=== PATIENT | male | born 1975 | race Caucasian/White ===

== ENCOUNTER 2019-01-10 23:11 | Inpatient (IN) ==
[2019-01-10] MEDS ORDERED: NARCAN ONE ×2 (23:45→23:49)
[2019-01-10] MEDS ORDERED: NARCAN IV ONE ×2 (23:52→23:53)
[2019-01-11 00:07] LABS: URINE SOURCE CATH
[2019-01-11 00:09] LABS: ALLEN TEST YES; BE -4.3 mmoll (-3.0-3.0); BLOOD TYPE ARTERIAL; HCO3-(ACT) 21.2 mmoll (20.0-26.0); METHB 1.3 % (0.0-1.5); O2(CT) 21.8 mL/dL (15.0-23.0); PO2(98.6) 152 mmHg (60-100); SAMPLE BLOOD; SAO2 99.7 % (95.0-100.0); THB 17.6 g/dL (11.5-17.4); pH(98.6) 7.27 (7.35-7.45)
[2019-01-11 00:11] LABS: MODALITY CANNULA
[2019-01-11 00:16] LABS: PCO2(98.6) 51 mmHg (35-45)
[2019-01-11 00:17] LABS: BASO# 0.02 X1000 (0.0-0.2); BASO% 0.2 % (0.0-0.8); EOS# 0.11 X1000 (0.0-0.7); EOS% 1.1 % (0.0-10.0); HEMATOCRIT 50.7 % (42.0-52.0); HEMOGLOBIN 17.2 g/dL (14.0-18.0); LYMPH# 3.99 X1000 (1.2-3.4); LYMPH% 40.3 % (20.5-51.1); MCH 31.6 PG (27-31); MCHC 33.9 g/dL (33-37); MONO# 0.54 X1000 (0.11-0.59); MONO% 5.5 % (1.7-9.3); MPV 9.2 FL (7.4-10.4); NEUT# 5.24 X1000 (1.4-6.5); NEUT% 52.9 % (42.2-75.2); PLT 302 X1000 (130-400); RBC 5.45 XMIL (4.7-6.1); RDW 13.4 % (11.5-14.5)
[2019-01-11] MEDS ORDERED: AMIDATE ONE (00:38)
[2019-01-11] MEDS ORDERED: AMIDATE IV ONE (00:38)
[2019-01-11] MEDS ORDERED: ZEMURON IV ONE (00:38)
[2019-01-11 00:44] LABS: BILIRUBIN URINE NEGATIVE (NEGATIVE); BLOOD URINE NEGATIVE (NEGATIVE); COLOR STRAW; GLUCOSE URINE NEGATIVE (NEGATIVE); KETONE URINE NEGATIVE (NEGATIVE); LEUKOCYTES URINE NEGATIVE (NEGATIVE); NITRITE URINE NEGATIVE (NEGATIVE); PROTEIN URINE NEGATIVE (NEGATIVE); SP GRAVITY URINE 1.006; TURBIDITY URINE CLEAR (CLEAR); UR EPITHELIAL CELLS <10 /HPF (<10); URINE BACTERIA NEGATIVE /HPF; URINE RBC <10 /HPF (<10); URINE WBC <10 /HPF (<10); UROBILINOGEN URINE NORMAL (NORMAL)
[2019-01-11] MEDS ORDERED: ZOFRAN ONE (00:56)
[2019-01-11] MEDS ORDERED: VERSED ONE (01:00)
[2019-01-11] MEDS ORDERED: DIPRIVAN 1% 1,000 MG/100 ML BOTTLE ONE (01:05)
[2019-01-11] MEDS ORDERED: DIPRIVAN 1% ONE (01:05)
[2019-01-11 01:06] LABS: ACETAMINOPHEN < 1.2 ug/mL (10-30); AGAP 17; ALB/GLOB RATIO 1.9; ALBUMIN 4.7 g/dL (3.5-5.0); ALKALINE PHOSPHATASE 98 U/L (32-122); BUN 7 mg/dL (8-22); CALCIUM 7.9 mg/dL (8.8-10.2); CHLORIDE 104 mmol/L (98-107); COSMO 282; CREATININE 0.8 mg/dL (0.7-1.2); GLUCOSE 112 mg/dL (70-104); GOT 24 U/L (10-34); GPT 33 U/L (10-44); POTASSIUM 3.5 mmol/L (3.5-5.1); SALICYLATES < 3.00 mg/dL (3-10); SODIUM 142 mmol/L (136-145); TCO2 21 mmol/L (25-35); TOTAL BILIRUBIN < 0.15 mg/dL (0.20-1.00); TOTAL PROTEIN 7.2 g/dL (6.3-8.3)
[2019-01-11] MEDS: DIPRIVAN 1% 1,000 MG/100 ML BOTTLE IV SCH ×2 (01:10→06:42)
[2019-01-11] MEDS ORDERED: VERSED IV ONE ×3 (01:16→01:30)
[2019-01-11] MEDS ORDERED: ZOFRAN IV ONE (01:16)
[2019-01-11 01:17] LABS: UR AMPHETAMINES QUAL NONE DETECTED (NONE DETECT); UR BARBITUATES QUAL NONE DETECTED (NONE DETECT); UR BENZODIAZEPIN QUAL NONE DETECTED (NONE DETECT); UR CANNABINOIDS QUAL NONE DETECTED (NONE DETECT); UR COCAINE QUAL NONE DETECTED (NONE DETECT); UR METHADONE QUAL NONE DETECTED (NONE DETECT); UR OPIATES QUAL NONE DETECTED (NONE DETECT); UR OXYCODONE QUAL NONE DETECTED (NONE DETECT); UR PCP QUAL NONE DETECTED (NONE DETECT)
[2019-01-11] MEDS ORDERED: DIPRIVAN 1% IV ONE (01:19)
[2019-01-11] MEDS ORDERED: DIPRIVAN 1% IV STA (01:19)
--- NOTE | 2019-01-11 01:46 | PROVIDER DOCUMENTATION ---
This chart was entered by Oj Denney Scribe, acting as scribe for Luna Dorsey MD. [id number] Abuse/Overdose <Bao Martínez - Last Filed: 01/11/19 14:04> - General Source: patient, EMS - History of Present Illness-Drug/Alcohol This episode of drinking or use began:: 1-3 hours ago Severity: reports: mild - Substance Abuse Substance Use: reports: alcohol, amphetamines - Alcohol Abuse Usually drinks:: daily <Luna Dorsey - Last Filed: 01/12/19 04:25> - General Chief Complaint: Intoxicated Stated Complaint: ETOH Time Seen by Provider: 01/10/19 23:38 Allergies/Adverse Reactions: Allergies Allergy/AdvReac Type Severity Reaction Status Date / Time No Known Allergies Allergy Verified 01/11/19 02:23 Home Medications: Home Medication List Medication Instructions Recorded Confirmed Last Taken Type No Home Medications 02/10/16 01/11/19 Unknown History - History of Present Illness-Drug/Alcohol Nature of Presenting Problem: Pt is a 43 yom who presents to the ED with a CC of alcohol overdose. Pt was unresponsive during examination. Pt's pupils were pinpoint level constricted. Pt had a nasal trumpet in the left nostril. Pt did not respond to verbal or painful stimuli. Pt has a hx of alcohol and drug abuse. (Luna Dorsey) Review of Systems - Adult - REVIEW OF SYSTEMS - ADULT Constitutional: reports: see HPI Eyes: reports: no symptoms reported Ears, Nose, Mouth & Throat: reports: no symptoms reported Cardiovascular: reports: no symptoms reported Respiratory: reports: no symptoms reported Gastrointestinal: reports: no symptoms reported Genitourinary: reports: no symptoms reported Musculoskeletal: reports: no symptoms reported Integumentary: reports: no symptoms reported Neurological: reports: no symptoms reported Psychiatric: reports: see HPI, alcohol/drug dependence Endocrine: reports: no symptoms reported Hematologic/Lymphatic: reports: no symptoms reported Allergic/Immunologic: reports: no symptoms reported All Other Systems: Reviewed and Negative <Luna Dorsey - Last Filed: 01/12/19 04:25> Past History - Adult - PAST MEDICAL HISTORY-ADULT Review of Records: reports: Old Records Reviewed, Nursing Assessment Review, Medications Reviewed, Social history reviewed & non-contributory. Major Childhood Illnesses: reports: denies history Cardiovascular: reports: HTN Respiratory: reports: asthma Gastrointestinal: reports: denies history Obstetrical/Gynecological: reports: denies history Genitourinary: reports: denies history Musculoskeletal: reports: denies history Neurological: reports: denies history Psychiatric: reports: bipolar Endocrine/Immune: reports: denies history Other Conditions: reports: denies history - PRIOR SURGERIES/PROCEDURES Surgical/Procedure History: reports: reviewed, not pertinent - IMMUNIZATION STATUS Childhood Immunizations: See Nurse Assessment Flu Vaccine: See Nurse Assessment - FAMILY HISTORY Family History: reviewed, not pertinent - SOCIAL HISTORY Smoking: cigarettes, less than 1 pack/day Substance Use: alcohol, amphetamines Alcohol Use Frequency: every day <Luna Dorsey - Last Filed: 01/12/19 04:25> Physical Exam-General - PHYSICAL EXAM-ADULT Exam Limited by: Pt's condition Initial Vital Signs Reviewed: Yes - CONSTITUTIONAL General Appearance: mild distress, other (Unresponsive) - EYES Eyes: other (Exam was limited due to pt's condition) - HEAD, EARS, NOSE, MOUTH & THROAT HENMT: normocephalic/atraumatic, moist mucous membranes, other (Exam was limited due to pt's condition) - NECK Neck: non-tender, full range of motion, other (Exam was limited due to pt's condition) - RESPIRATORY Respiratory: chest non-tender, lungs clear, normal breath sounds, other (Exam wa s limited due to pt's condition) - CARDIOVASCULAR Cardiovascular: normal peripheral pulses, regular rate, rhythm, no edema, other (Exam was limited due to pt's condition) - GASTROINTESTINAL (ABDOMEN) Abdominal Exam: non tender, soft, other (Exam was limited due to pt's condition) - MUSCULOSKELETAL Extremity: normal range of motion, non-tender, other (Exam was limited due to pt's condition) - SKIN Integumentary: normal color, warm/dry, other (Exam was limited due to pt's condition) - NEUROLOGIC Neurologic: sensory deficit, other (Exam was limited due to pt's condition) - PSYCHIATRIC Psych/Mental Status: disoriented x 3, other (Exam was limited due to pt's condition) <Luna Dorsey - Last Filed: 01/12/19 04:25> Progress - PLAN OF CARE/RESULTS Result Diagrams: 01/11/19 09:05 01/11/19 09:05 <Bao Martínez - Last Filed: 01/11/19 14:04> - PLAN OF CARE/RESULTS Result Diagrams: 01/11/19 09:05 01/11/19 09:05 - EKG 1 Time of EKG reading by physician:: 00:02 EKG Read and Signed by:: Luna Dorsey EKG Interpretation (*Must complete 3 of following elements*): Normal Rate: 88 Rhythm: NSR [place]: normal QRS: normal [place] Interval: normal ST Wave: normal - CT/MRI 1 CT Study: Head Impression: See EMR Report (Impression: No acute intracranial disease.) <Luna Dorsey - Last Filed: 01/12/19 04:25> - PLAN OF CARE/RESULTS Progress/Plan/Lab Results: Orders Category Date Time Status Admit [facility] Routine AdmDCTranf 01/11/19 04:35 Active Activity - Strict Bedrest ORDERED Care 01/11/19 04:35 Active Blood Glucose Finger Stick [FSBS/Accucheck Result] NOW Care 01/10/19 23:51 Completed Hernandez Care ROUTINE Care 01/11/19 03:11 Completed Hernandez Cath Insertion ORDERED Care 01/11/19 03:11 Active Intake and Output-Strict ORDERED Care 01/11/19 04:35 Active Neurological Check Q12-HR ASSESS Care 01/11/19 01:19 Active Nursing- MD Consult Request ROUTINE Care 01/11/19 04:35 Completed Vital Signs Order Q 4-HR ASSESS Care 01/11/19 04:35 Active Z-Document. for Tele Applied ORDERED Care 01/11/19 04:35 Active Physician/Provider Consults Routine Cons 01/11/19 04:35 Ordered NPO Diet 01/11/19 04:35 Completed CHEST-1 VIEW [RAD] Stat Exams 01/11/19 01:05 Completed CHEST-PORTABLE [RAD] Stat Exams 01/10/19 23:[address] HEAD W/O CONTRAST [CT] Stat Exams 01/10/19 23:51 Completed ABG [RESP] Routine Lab 01/10/19 23:52 Completed ACETAMINOPHEN [TDM] Stat Lab 01/11/19 00:01 Completed ALCOHOL BLOOD Stat Lab 01/11/19 00:01 Completed CBC WITH ELECTRONIC DIFF [HEME] Stat Lab 01/11/19 00:01 Completed COMPREHENSIVE METABOLIC PANEL [CHEM] Stat Lab 01/11/19 00:01 Completed MAGNESIUM [CHEM] Routine Lab 01/11/19 04:45 Completed Po4 [PHOSPHORUS] [CHEM] Routine Lab 01/11/19 04:45 Completed SALICYLATES [TDM] Stat Lab 01/11/19 00:01 Completed TROPONIN T Stat Lab 01/11/19 00:01 Completed TSH Routine Lab 01/11/19 04:45 Completed URINALYSIS W/POSS RFLX CULT [URINALYSIS] Stat Lab 01/11/19 00:01 Completed URINE DRUG SCREEN Stat Lab 01/11/19 00:01 Completed 0.9% Sodium Chloride Inj [Ns] 1,000 ml Med 01/11/19 04:35 Discontinued IV 100 mls/hr Albuterol 2.5MG/Ipratrop 0.5MG [Duoneb (A & A)] Med 01/11/19 04:35 Discontinued 3 ml INH RTQ6H Enoxaparin [Lovenox] Med 01/11/19 04:35 Discontinued 40 mg SUBQ Q24H Etomidate [Amidate] Med 01/11/19 00:38 Discontinued 20 mg IV NOW ONE Etomidate [Amidate] Med 01/11/19 00:38 Discontinued 40 mg .ROUTE .STK-MED ONE Midazolam [Versed] Med 01/11/19 01:16 Discontinued 2 mg IV NOW ONE Midazolam [Versed] Med 01/11/19 01:30 Discontinued 2 mg IV NOW ONE Midazolam [Versed] Med 01/11/19 01:16 Discontinued 3 mg IV NOW ONE Midazolam [Versed] Med 01/11/19 01:00 Discontinued 5 mg .ROUTE .STK-MED ONE Naloxone [Narcan] Med 01/10/19 23:45 Discontinued 2 mg .ROUTE .STK-MED ONE Naloxone [Narcan] Med 01/10/19 23:49 Discontinued 2 mg .ROUTE .STK-MED ONE Naloxone [Narcan] Med 01/10/19 23:52 Discontinued 2 mg IV NOW ONE Naloxone [Narcan] Med 01/10/19 23:53 Discontinued 2 mg IV NOW ONE Ondansetron [Zofran] Med 01/11/19 04:35 Discontinued 4 mg IV Q4H PRN PRN Ondansetron [Zofran] Med 01/11/19 00:56 Discontinued 8 mg .ROUTE .STK-MED ONE Ondansetron [Zofran] Med 01/11/19 01:16 Discontinued 8 mg IV NOW ONE Piperacillin/Tazobactam [Zosyn] 4.5 gm Med 01/11/19 02:00 Discontinued 0.9% Sodium Chloride Inj [Ns] 100 ml IV NOW Propofol [Diprivan 1%] Med 01/11/19 01:19 Discontinued 10 mg IV STAT ONE Propofol [Diprivan 1%] Med 01/11/19 01:19 Discontinued 10 mg IV STAT STA Propofol [Diprivan 1%] Med 01/11/19 01:05 Discontinued 200 mg .ROUTE .STK-MED ONE Propofol [Diprivan 1%] Med 01/11/19 01:05 Discontinued 1,000 mg in 100 ml .ROUTE As directed Propofol [Diprivan 1%] Med 01/11/19 01:30 Discontinued 1,000 mg in 100 ml IV As Directed mls/hr Rocuronium Sneads [Zemuron] Med 01/11/19 00:38 Discontinued 100 mg IV NOW ONE Thiamine 100 mg Med 01/11/19 05:00 Discontinued 0.9% Sodium Chloride Inj [Ns] 50 ml IV Q24H Vancomycin 1 gm/Ns Med 01/11/19 02:00 Discontinued 1 gm in 250 ml IV NOW Aerosol Treatments Routine Oth 01/11/19 04:35 Completed Telemetry [OM.EQ] Routine Oth 01/11/19 04:35 Active Transfer/Admit Order [TRANSFER] Routine Transfer 01/11/19 03:05 Completed Procedures - INTUBATION Airway Evaluation: Copious Secretions Intubation Method: orotracheal Equipment: ETT Tube Size (cm): 8.0 Pretreated with 100% Oxygen?: Yes Breath Sounds after Intubation: equal ETT Primary Tube Confirmation: Capnometry CO2 Change, Direct Visualization, Tube placement verified on XRAY Intubation Complications: oral-unsuccessful attempt (1x unsuccessful attempt due to patient requiring further sedation. Second attempt successful.), vomited, apparent aspiration Vent Settings: See Respiratory Therapy Notes <Bao Martínez - Last Filed: 01/11/19 14:04> Departure <Bao Martínez - Last Filed: 01/11/19 14:04> - Departure Date of Disposition Decision: 01/11/19 Time of Disposition Decision: 02:02 Certified Medical Emergency: Emergent - Critical Care Note This patient required my direct & personal management of CC.: No <Luna Dorsey - Last Filed: 01/12/19 04:25> - Departure DIAGNOSIS: Alcohol intoxication, Altered mental status, Respiratory failure with hypercapnia Disposition: ADMITTED INPATIENT 09 Condition: Serious Attestation - Physician/ VIDAL Attestation Patient care was provided by Advanced Practice Provider:: No The physician spent face to face time with patient:: Yes Advanced Practice Provider documentation review:: Supervising physician onsite and consulted in the evaluation and care of this patient. The physician did have a face to face encounter with the patient. <Luna Dorsey - Last Filed: 01/12/19 04:25> This chart was documented by the indicated scribe, (Oj Denney Scribe) and accurately reflects the services I performed and decisions made by me, Luna Dorsey MD, as attested by the provider's signature.
[2019-01-11] MEDS ORDERED: VANCOMYCIN 1 GM/NS 1 GM/250 ML IVPB IV ONE (02:00)
[2019-01-11] MEDS ORDERED: ZOSYN 4.5 GM in NS 100 ML IV ONE (02:00)
[2019-01-11] MEDS ORDERED: ZOFRAN IV PRN (04:35)
[2019-01-11] MEDS ORDERED: LOVENOX SUBQ SCH (04:35)
[2019-01-11] MEDS ORDERED: THIAMINE 100 MG in NS 50 ML IV SCH (05:00)
[2019-01-11 05:14] LABS: ALLEN TEST YES; BE -5.2 mmoll (-3.0-3.0); BLOOD TYPE ARTERIAL; HCO3-(ACT) 20.8 mmoll (20.0-26.0); METHB 1.3 % (0.0-1.5); O2(CT) 23.5 mL/dL (15.0-23.0); PCO2(98.6) 34 mmHg (35-45); PO2(98.6) 110 mmHg (60-100); SAMPLE BLOOD; SAO2 99.2 % (95.0-100.0); SRATE 16 BPM; THB 17.5 g/dL (11.5-17.4); TVOL 600 mL; pH(98.6) 7.36 (7.35-7.45)
[2019-01-11] MEDS: NS 1,000 ML IV SCH ×2 (05:14→15:09)
[2019-01-11 05:15] LABS: MODALITY VENTILATOR
[2019-01-11] MEDS: DUONEB (A & A) INH SCH ×3 (05:26→15:26)
[2019-01-11 05:54] LABS: MAGNESIUM 2.1 mg/dL (1.5-2.7); PHOSPHORUS 1.6 mg/dL (2.7-4.5)
[2019-01-11] MEDS ORDERED: SODIUM PHOSPHATE 20 MMOL in NS 250 ML IV ONE (06:28)
[2019-01-11] MEDS ORDERED: CALCIUM GLUCONATE 1 GM in NS 50 ML IV ONE (06:29)
--- NOTE | 2019-01-11 06:42 | Diag Imaging Result Doc PS360 ---
CT HEAD W/O CONTRAST - 01/10/2019 INDICATION: AMS COMPARISON: 09/08/2015 FINDINGS: The ventricles and sulci are normal in size and contour. No intracranial mass or hemorrhage. The skull is intact. The sinuses mastoids and middle ears are clear. IMPRESSION: Negative exam. This exam was performed using automated exposure control, adjustment of mA or kV according to patient size, and/or use of iterative reconstruction technique Electronically signed by Iain Tobin 01/11/2019 6:40 AM
--- NOTE | 2019-01-11 07:01 | Diag Imaging Result Doc PS360 ---
EXAM: CHEST-PORTABLE 01/10/2019 HISTORY: AMS TECHNIQUE: AP portable at 0016 COMMENT: There is some increase in prominence of the pulmonary vascularity. The inspiration is less optimal than on 08/12/2013. There is some questionable atelectasis over the left base. IMPRESSION: Poor inspiration. Left subsegmental atelectasis. Electronically signed by Kishore Gamez 01/11/2019 6:59 AM
--- NOTE | 2019-01-11 07:03 | Diag Imaging Result Doc PS360 ---
EXAM: CHEST-1 VIEW 01/11/2019 HISTORY: Check ET tube placement TECHNIQUE: AP portable at 0114 COMMENT: There is an endotracheal tube with its tip slightly below the thoracic inlet and well above the josh. There is soft tissue emphysema in the left supraclavicular region which was not apparent at the time the previous study of 01/11/2019 at 0016. Otherwise are has been no significant change in the appearance the chest and there is no evidence of pneumothorax or pneumomediastinum. IMPRESSION: Left supraclavicular soft tissue emphysema. Electronically signed by Kishore Gamez 01/11/2019 7:01 AM
--- NOTE | 2019-01-11 07:58 | HISTORY AND PHYSICAL ---
CHIEF COMPLAINT: Alcohol intoxication. HISTORY OF PRESENT ILLNESS: Mr. Cardoso is a 43-year-old male who comes in after drinking a large quantity of alcohol and possibly taking amphetamines. He was brought in unresponsive. Did not respond to verbal or painful stimulus. He has a history of polysubstance abuse. He was intubated in the emergency room. Most of the information if not all of it is from old medical charting as well as the ER charts. At any rate, his serum alcohol level was found to be 485. He did not have any other substances in his toxicology screen. His ABG showed respiratory acidosis. He will be intubated and placed in ICU for further evaluation and treatment. PAST MEDICAL HISTORY: Again limited related to his condition, but I believe he has a history of polysubstance abuse, suicidal ideation and tobacco use. PREVIOUS SURGICAL HISTORY: This is unknown. FAMILY HISTORY: I believe his mother had a history of bipolar disorder. SOCIAL HISTORY: Lives in [place]. Uses alcohol. Has had DUI's in the past with numerous arrests from what I understand. Has had a history of polysubstance abuse and I believe that he does smoke cigarettes, I am unsure how much. ALLERGIES: No known drug allergies. HOME MEDICATIONS: None that I am aware of. REVIEW OF SYSTEMS: This could not be conducted related to patient's condition. PHYSICAL EXAMINATION: VITAL SIGNS: Temperature 97.2 degrees, pulse 87, respirations 16, blood pressure 100/73, oxygen saturation 100% on mechanical ventilation. GENERAL: 43-year-old male lying in the ER stretcher intubated and sedated, in no acute distress. HEENT: Head is atraumatic, normocephalic. Pupils equal, round and reactive to light. Extraocular eye movement cannot be tested. Sclerae anicteric. Conjunctivae pink. Oral mucosa is dry. NECK: Supple. No JVD. No thyromegaly. Trachea is midline. No cervical lymphadenopathy. CARDIAC: S1, S2 appreciated. No murmurs, gallops, rubs. LUNGS: Clear to auscultation bilaterally. No rhonchi, wheezes or rales. Symmetrical rise and fall of respirations. ABDOMEN: Soft, nondistended, nontender. Bowel sounds present in all 4 quadrants. Normoactive. No pulsatile mass. No organomegaly. EXTREMITIES: No cyanosis, clubbing or edema. NEUROLOGICAL: Intubated and sedated. Cannot be tested. GENITOURINARY: No bladder distention. Otherwise deferred. DIAGNOSTIC DATA: Chest x-ray shows ET tube in good placement. LABORATORY DATA: CBC within normal limits. ABG, pH 7.27, pCO2 51, PO2 152, bicarb 21.2, this was on 4 liters nasal cannula. Sodium 142, potassium 3.5, chloride 104, carbon dioxide 21, BUN 7, creatinine 0.8, glucose 112, phosphorus 1.6, calcium 7.9. Urine unremarkable. Serum alcohol 485. ASSESSMENT AND PLAN: 1. Acute alcohol intoxication. 2. Polysubstance abuse. 3. Tobacco use. 4. Respiratory acidosis. 5. Deranged electrolytes. PLAN: Patient is intubated and sedated. Place him in the ICU. Replete and recheck electrolytes. We will give normal saline 100 mL an hour. Recheck ABGs tomorrow morning. Consult Dr. Armenta for ventilator management. 30 minutes critical care time. Further recommendations per patient's clinical course. Dictated by MICHELA Whittington for Nilay Yoder MD cc: MICHELA Whittington MD
[2019-01-11] MEDS ORDERED: ATIVAN IV PRN (08:17)
[2019-01-11] MEDS: POTASSIUM CHLORIDE 20 MEQ/SWI 20 MEQ/100 ML IVPB IV SCH ×2 (08:30→09:12)
--- NOTE | 2019-01-11 08:37 | EKG Report ---
Test Performed on : 01/11/2019 00:00:39 AM Test Reason : Alcoholic Intoxication Blood Pressure : / mmHG Vent. Rate : 088 BPM Atrial Rate : 088 BPM P-R Int : 172 ms QRS Dur : 098 ms QT Int : 382 ms P-R-T Axes : 056 000 029 degrees QTc Int : 462 ms Normal sinus rhythm. Normal ECG When compared with ECG of 03-APR-2016 09:16, Questionable change in QRS axis Unconfirmed Result
--- NOTE | 2019-01-11 08:51 | PROGRESS NOTE ---
DATE: 01/11/2019 SUBJECTIVE: The patient is on mechanical ventilation and sedated. Vital signs at this moment are stable. His fiancee is at the bedside. We had a large conversation about his situation. As per the mareke, he is not an alcoholic, but he has been drinking vodka for the past couple of days. She found him unresponsive, and called the ambulance yesterday night. OBJECTIVE: Vital Signs: Temperature 98.9 degrees, pulse 92, respiratory rate 16, blood pressure 116/94, and oxygen saturation 100% on room air. HEENT: Head normocephalic. No trauma. PERRLA. His pupils even though they are reactive are pinpoint. Neck: Supple. No JVD. Central trachea. Chest: Clear to auscultation. No wheezing. No rales. Abdomen: Soft, nontender, and nondistended. No hepatosplenomegaly. Neurological: This patient is on mechanical ventilation and sedated. LABORATORY: Phosphorus 1.6 and magnesium 2.1. Pending CMP. ASSESSMENT AND PLAN: 1. Acute alcohol intoxication. 2. History of polysubstance abuse. 3. Tobacco abuse. 4. Acute hypoxemic and hypercarbic respiratory failure. 5. Electrolyte imbalance. PLAN: We will continue with mechanical ventilation and sedation at this moment. We have been replacing his electrolytes. I will add Ativan as needed for agitation and/or seizures. As per the haider, who is at the bedside, he is not an alcoholic, but he has been drinking for the past couple of days. At this moment, he seems to be stable. CRITICAL CARE TIME: 30 minutes. cc: Ramy Carreon MD
[2019-01-11 09:34] LABS: BASO# 0.01 X1000 (0.0-0.2); BASO% 0.1 % (0.0-0.8); EOS# 0.04 X1000 (0.0-0.7); EOS% 0.4 % (0.0-10.0); HEMATOCRIT 48.2 % (42.0-52.0); HEMOGLOBIN 16.4 g/dL (14.0-18.0); IMM GRAN# 0.03 X1000 (0.0-0.04); IMM GRAN% 0.3 % (0.0-0.5); LYMPH# 2.65 X1000 (1.2-3.4); LYMPH% 24.2 % (20.5-51.1); MCH 31.7 PG (27-31); MCV 93.1 FL (81-99); MONO# 0.48 X1000 (0.11-0.59); MONO% 4.4 % (1.7-9.3); MPV 9.2 FL (7.4-10.4); NEUT# 7.75 X1000 (1.4-6.5); NEUT% 70.6 % (42.2-75.2); PLT 292 X1000 (130-400); RBC 5.18 XMIL (4.7-6.1); RDW 13.4 % (11.5-14.5); WBC 10.96 X1000 (4.8-10.8)
[2019-01-11 09:48] LABS: ALLEN TEST YES; BLOOD TYPE ARTERIAL; HCO3-(ACT) 22.5 mmoll (20.0-26.0); METHB 1.2 % (0.0-1.5); O2(CT) 23.2 mL/dL (15.0-23.0); O2HB 96.7 % (95.0-99.0); PCO2(98.6) 49 mmHg (35-45); PO2(98.6) 126 mmHg (60-100); SAMPLE BLOOD; SAO2 99.6 % (95.0-100.0)
[2019-01-11 09:49] LABS: MODALITY VENTILATOR
[2019-01-11 10:02] LABS: AGAP 16; ALB/GLOB RATIO 1.6; ALBUMIN 4.1 g/dL (3.5-5.0); ALKALINE PHOSPHATASE 88 U/L (32-122); BUN 7 mg/dL (8-22); CALCIUM 8.5 mg/dL (8.8-10.2); CHLORIDE 107 mmol/L (98-107); COSMO 288; CREATININE 0.9 mg/dL (0.7-1.2); ESTIMATED GFR > 60; GLUCOSE 89 mg/dL (70-104); GOT 19 U/L (10-34); GPT 27 U/L (10-44); SODIUM 146 mmol/L (136-145); TCO2 23 mmol/L (25-35); TOTAL BILIRUBIN 0.17 mg/dL (0.20-1.00); TOTAL PROTEIN 6.7 g/dL (6.3-8.3)
[2019-01-11 14:46] VITALS: BP 141/96
--- NOTE | 2019-01-11 19:40 | PULMONOLOGY CONSULTATION ---
DATE: 01/11/2019 REASON FOR CONSULTATION: Respiratory failure. HISTORY OF PRESENT ILLNESS: Mr. Cardoso is a 43-year-old male with history of alcohol use, history of polysubstance abuse, who had been drinking and taking drugs when he consumed a large amount of alcohol. The patient presented to the emergency room and was found to have a blood alcohol level 6 times over the legal limit. The patient was intubated and initiated on mechanical ventilation. He has started to wake up earlier this morning and has been initiated on propofol. PAST MEDICAL HISTORY: 1. History of suicidal ideation with prior admissions to [facility]. 2. History of panic attacks. FAMILY HISTORY: Mother and sister have bipolar disorder by report. SOCIAL HISTORY: Notable for alcohol use, drug use and tobacco use. REVIEW OF SYSTEMS: Cannot be obtained. PHYSICAL EXAMINATION: General: Reveals a well-developed, well-nourished male who is arousable with sedation of propofol. HEENT: Pupils are equal and reactive but slightly pinpoint. Oropharynx appears clear. Neck: Supple. Chest: Reveals occasional crackles bilaterally. Cardiac: S1-S2. Abdomen: Soft. Extremities: Without edema. LABORATORIES: Sodium 146, potassium 4.0, chloride 107, bicarbonate 23, BUN 7, creatinine 0.9. Alcohol level 485. Chest x-ray reveals some soft tissue emphysema in the inferior left neck possibly related to a line attempt. No evidence pneumothorax. Arterial blood gas at 5 o'clock this morning pH 7.36, pCO2 of 34, PO2 of 110. IMPRESSION: A 43-year-old with extensive alcohol use who presents with alcohol level 6 times the legal limit. The patient is now arousable. He is breathing on his own. RECOMMENDATIONS: 1. Hold propofol. 2. Initiate a spontaneous breathing trial. 3. Evaluate for extubation. TIME SPENT: In critical care management 1 hour. cc: Paresh Armenta MD
--- NOTE | 2019-01-12 08:09 | DISCHARGE SUMMARY ---
ADMISSION DATE: 01/11/2019 DISCHARGE DATE: 01/11/2019 DISCHARGE DIAGNOSES: 1. Alcohol intoxication. 2. History of polysubstance abuse. 3. Tobacco abuse. 4. Hypoxemic and hypercarbic respiratory failure. 5. Electrolyte imbalance. CONSULTATIONS: Pulmonary Department. HOSPITAL COURSE: A 43-year-old male admitted on 01/11/2019 after drinking a large quantity of alcohol. He was brought in unresponsive, did not respond to verbal or painful stimuli. He has a history polysubstance abuse. He was intubated in the emergency room. Most of the information if not all of it is from old medical charting as well as the ER chart. His serum alcohol level was found to be 485. He did not have any other substances in his toxicology screen. ABG showed respiratory acidosis. He was placed in the ICU, and evaluated by Pulmonary Department. Breathing trial was performed. We replaced the electrolytes. We put him on IV fluids and thiamine. Actually, he was extubated and a few hours later he has decided to leave AMA. As per the nurse, he was completely awake, alert and oriented x3. He signed the AMA papers, and left even though it has been explained that we would like to keep him at least for 1 day to monitor his respiratory status since he has been extubated recently. His head CT scan was completely normal. Chest x-ray shows some left subsegmental atelectasis the day of admission. Another x-ray showed some subclavicular soft tissue emphysema. The patient left AMA even though he has been recommended to stay for at least 24 hours. cc: Ramy Carreon MD
== END 2019-01-11 16:23 | disposition left against medical advice (07) | DRG 894 ==
LOC: ED 23:11 → ICU 01-11 03:21 → SUATTDRO 01-11 03:21
PROVIDERS: ATTEND Internal Medicine

== ENCOUNTER 2019-01-11 19:24 | Inpatient (IN) ==
[2019-01-11 20:19] LABS: URINE SOURCE CLEAN CATCH
[2019-01-11 20:26] LABS: BASO# 0.02 X1000 (0.0-0.2); BASO% 0.2 % (0.0-0.8); EOS# 0.02 X1000 (0.0-0.7); EOS% 0.2 % (0.0-10.0); HEMATOCRIT 47.9 % (42.0-52.0); HEMOGLOBIN 15.9 g/dL (14.0-18.0); IMM GRAN# 0.03 X1000 (0.0-0.04); IMM GRAN% 0.3 % (0.0-0.5); LYMPH# 2.12 X1000 (1.2-3.4); LYMPH% 18.2 % (20.5-51.1); MCH 31.1 PG (27-31); MCHC 33.2 g/dL (33-37); MCV 93.7 FL (81-99); MONO# 0.69 X1000 (0.11-0.59); MONO% 5.9 % (1.7-9.3); MPV 9.4 FL (7.4-10.4); NEUT# 8.77 X1000 (1.4-6.5); NEUT% 75.2 % (42.2-75.2); PLT 291 X1000 (130-400); RBC 5.11 XMIL (4.7-6.1); RDW 13.3 % (11.5-14.5); WBC 11.65 X1000 (4.8-10.8)
[2019-01-11 20:30] LABS: BILIRUBIN URINE NEGATIVE (NEGATIVE); BLOOD URINE TRACE (NEGATIVE); COLOR YELLOW; GLUCOSE URINE NEGATIVE (NEGATIVE); KETONE URINE NEGATIVE (NEGATIVE); LEUKOCYTES URINE NEGATIVE (NEGATIVE); NITRITE URINE NEGATIVE (NEGATIVE); PH URINE 6.5; PROTEIN URINE TRACE mg/dL (NEGATIVE); SP GRAVITY URINE 1.015; TURBIDITY URINE CLEAR (CLEAR); UROBILINOGEN URINE NORMAL (NORMAL)
[2019-01-11 20:33] LABS: UR EPITHELIAL CELLS <10 /HPF (<10); URINE BACTERIA NEGATIVE /HPF; URINE RBC <10 /HPF (<10); URINE WBC <10 /HPF (<10)
[2019-01-11 20:36] LABS: URINE CRYSTALS NONE SEEN
[2019-01-11 20:37] LABS: UR AMPHETAMINES QUAL NONE DETECTED (NONE DETECT); UR BARBITUATES QUAL NONE DETECTED (NONE DETECT); UR BENZODIAZEPIN QUAL PRESUMPTIVE POSITIVE (NONE DETECT); UR CANNABINOIDS QUAL NONE DETECTED (NONE DETECT); UR COCAINE QUAL NONE DETECTED (NONE DETECT); UR METHADONE QUAL NONE DETECTED (NONE DETECT); UR OPIATES QUAL NONE DETECTED (NONE DETECT); UR OXYCODONE QUAL NONE DETECTED (NONE DETECT); UR PCP QUAL NONE DETECTED (NONE DETECT)
[2019-01-11 20:40] LABS: AGAP 14; ALB/GLOB RATIO 1.3; ALBUMIN 4.2 g/dL (3.5-5.0); ALKALINE PHOSPHATASE 95 U/L (32-122); BUN 7 mg/dL (8-22); CHLORIDE 102 mmol/L (98-107); COSMO 279; CREATININE 0.8 mg/dL (0.7-1.2); ESTIMATED GFR > 60; GLUCOSE 93 mg/dL (70-104); GOT 30 U/L (10-34); GPT 27 U/L (10-44); SODIUM 141 mmol/L (136-145); TCO2 25 mmol/L (25-35); TOTAL BILIRUBIN 0.48 mg/dL (0.20-1.00); TOTAL PROTEIN 7.4 g/dL (6.3-8.3)
--- NOTE | 2019-01-11 21:19 | PROVIDER DOCUMENTATION ---
HPI-General Adult - General Chief Complaint: Withdrawals Stated Complaint: VMITING BLOOD/WITHDRAWALS Time Seen by Provider: 01/11/19 21:19 Source: patient, family Allergies/Adverse Reactions: Patient Allergies Allergy/AdvReac Type Severity Reaction Status Date / Time No Known Allergies Allergy Verified 01/11/19 02:23 Home Medications: Home Medication List Medication Instructions Recorded Confirmed Last Taken Type No Home Medications 02/10/16 01/11/19 Unknown History - History of Present Illness -Gen Adult Nature of Presenting Problems: This is a 43yo male who presents with family with CC of withdrawl symptoms. The patient was recently admitted yesterday and was intubated and in the ICU due to being unresponsive, and then left AMA this afternoon. The patient reports that he left due to wanting to have a cigarette. The patient and reports that his last drink was >24 hours ago and that he has been hurting all over and had a seizure episode. The patient reports some vomiting and vomiting some blood. The patient does reports a history of seizures with withdrawl in the past. Review of Systems - Adult - REVIEW OF SYSTEMS - ADULT Constitutional: reports: no symptoms reported. denies: fever Eyes: reports: no symptoms reported Ears, Nose, Mouth & Throat: reports: throat pain Cardiovascular: reports: no symptoms reported Respiratory: reports: no symptoms reported Gastrointestinal: reports: no symptoms reported Musculoskeletal: reports: muscle aches Integumentary: reports: no symptoms reported Neurological: reports: loss of balance, seizure Psychiatric: reports: alcohol/drug dependence Endocrine: reports: no symptoms reported Hematologic/Lymphatic: reports: no symptoms reported Allergic/Immunologic: reports: no symptoms reported Past History - Adult - PAST MEDICAL HISTORY-ADULT Review of Records: reports: Old Records Reviewed Major Childhood Illnesses: reports: denies history Cardiovascular: reports: HTN Respiratory: reports: asthma Gastrointestinal: reports: denies history Genitourinary: reports: denies history Musculoskeletal: reports: denies history Neurological: reports: denies history Psychiatric: reports: bipolar Endocrine/Immune: reports: denies history Other Conditions: reports: denies history - PRIOR SURGERIES/PROCEDURES Surgical/Procedure History: reports: reviewed, not pertinent - IMMUNIZATION STATUS Childhood Immunizations: See Nurse Assessment Flu Vaccine: See Nurse Assessment - FAMILY HISTORY Family History: reviewed, not pertinent Physical Exam-General - PHYSICAL EXAM-ADULT Initial Vital Signs Reviewed: Yes - CONSTITUTIONAL General Appearance: alert, mild distress, anxious - EYES Eyes: PERRL/EOMI. negative: conjuctival exudate, scleral icterus - HEAD, EARS, NOSE, MOUTH & THROAT HENMT: moist mucous membranes, pharynx normal, other (no tongue injury) - NECK Neck: other (mild tenderness reported with palpation) - RESPIRATORY Respiratory: no respiratory distress, decreased breath sounds (RLL) - CARDIOVASCULAR Cardiovascular: regular rate, rhythm, no edema - GASTROINTESTINAL (ABDOMEN) Abdominal Exam: soft, tenderness (mild LLQ tenderness reported). negative: guarding - SKIN Integumentary: normal color, warm/dry - NEUROLOGIC Neurologic: grossly normal, other (some difficulty with speaking, tremors noted in hands, fasiculations noted with toungue) - PSYCHIATRIC Psych/Mental Status: anxious, disheveled Progress - PLAN OF CARE/RESULTS Progress/Plan/Lab Results: Vital Signs - 8 hr 01/11/19 19:34 Temperature 98.6 F Pulse Rate 113 H Respiratory Rate 22 Blood Pressure 138/84 O2 Sat by Pulse Oximetry 96 Laboratory Results - last 24 hr 01/11/19 01/11/19 01/11/19 19:48 19:48 19:52 WBC 11.65 H RBC 5.11 Hgb 15.9 Hct 47.9 MCV 93.7 MCH 31.1 H MCHC 33.2 RDW Std Deviation 13.3 Plt Count 291 MPV 9.4 Immature Gran % (Auto) 0.3 Neut % (Auto) 75.2 Lymph % (Auto) 18.2 L [place] % (Auto) 5.9 Eos % (Auto) 0.2 Baso % (Auto) 0.2 Immature Gran # (Auto) 0.03 Neut # (Auto) 8.77 H Lymph # (Auto) 2.12 [place] # (Auto) 0.69 H Eos # (Auto) 0.02 Baso # (Auto) 0.02 Sodium 141 Potassium 4.0 Chloride 102 Carbon Dioxide 25 Anion Gap 14 BUN 7 L Creatinine 0.8 Estimated GFR/1.73 m2 > 60 BUN/Creatinine Ratio 9 Glucose 93 Calculated Osmolality 279 Calcium 9.0 Total Bilirubin 0.48 AST 30 ALT 27 Alkaline Phosphatase 95 Total Protein 7.4 Albumin 4.2 Globulin 3.2 Albumin/Globulin Ratio 1.3 Urine Source CLEAN CATCH Urine Color YELLOW Urine Turbidity CLEAR Urine pH 6.5 Ur Specific [place] 1.015 Urine Protein TRACE A Ur Glucose (Stick) NEGATIVE Ur Ketones (Stick) NEGATIVE Urine Blood TRACE A Urine Nitrite NEGATIVE Urine Bilirubin NEGATIVE Urobilinogen Dipstick NORMAL Urine Leukocytes NEGATIVE Urine WBC (Auto) <10 Urine RBC (Auto) <10 U Epithel Cells (Auto) <10 Urine Bacteria (Auto) NEGATIVE Urine Crystals NONE SEEN Small Round Cells Not Reportable Urine Casts Not Reportable Urine Yeast-like Cells Not Reportable Urine Opiates Screen Ur Oxycodone Screen Ur Methadone, Qual Ur Barbiturates Screen Ur Phencyclidine Scrn Ur Amphetamines Screen U Benzodiazepines Scrn Urine Cocaine Screen U Cannabinoids Screen 01/11/19 19:52 WBC RBC Hgb Hct MCV MCH MCHC RDW Std Deviation Plt Count MPV Immature Gran % (Auto) Neut % (Auto) Lymph % (Auto) [place] % (Auto) Eos % (Auto) Baso % (Auto) Immature Gran # (Auto) Neut # (Auto) Lymph # (Auto) [place] # (Auto) Eos # (Auto) Baso # (Auto) Sodium Potassium Chloride Carbon Dioxide Anion Gap BUN Creatinine Estimated GFR/1.73 m2 BUN/Creatinine Ratio Glucose Calculated Osmolality Calcium Total Bilirubin AST ALT Alkaline Phosphatase Total Protein Albumin Globulin Albumin/Globulin Ratio Urine Source Urine Color Urine Turbidity Urine pH Ur Specific [place] Urine Protein Ur Glucose (Stick) Ur Ketones (Stick) Urine Blood Urine Nitrite Urine Bilirubin Urobilinogen Dipstick Urine Leukocytes Urine WBC (Auto) Urine RBC (Auto) U Epithel Cells (Auto) Urine Bacteria (Auto) Urine Crystals Small Round Cells Urine Casts Urine Yeast-like Cells Urine Opiates Screen NONE DETECTED Ur Oxycodone Screen NONE DETECTED Ur Methadone, Qual NONE DETECTED Ur Barbiturates Screen NONE DETECTED Ur Phencyclidine Scrn NONE DETECTED Ur Amphetamines Screen NONE DETECTED U Benzodiazepines Scrn PRESUMPTIVE POSITIVE A Urine Cocaine Screen NONE DETECTED U Cannabinoids Screen NONE DETECTED Orders Category Date Time Status ALCOHOL BLOOD Stat Lab 01/11/19 20:42 Uncollected CBC WITH DIFF [HEME] Stat Lab 01/11/19 19:48 Completed CMP [COMPREHENSIVE METABOLIC PANEL] [CHEM] Stat Lab 01/11/19 19:48 Completed UA NIMS W/REFLEX CULT [URINALYSIS] Stat Lab 01/11/19 19:52 Completed URINE DRUG SCREEN Stat Lab 01/11/19 19:52 Completed URINE MANUAL MICROSCOPIC [URINALYSIS] Stat Lab 01/11/19 19:52 Completed Result Diagrams: 01/11/19 19:48 01/11/19 19:48 - REASSESSMENT Reassessment #1 Status: other (Discussed case with hospitalist who has accepted the patient for admission for alcohol withdrawl.) Departure - Departure Date of Disposition Decision: 01/12/19 Time of Disposition Decision: 00:15 DIAGNOSIS: Alcohol withdrawal Qualifiers: Complication of substance-induced condition: uncomplicated Qualified Code(s): F10.230 - Alcohol dependence with withdrawal, uncomplicated Disposition: ADMITTED INPATIENT 09 Certified Medical Emergency: Emergent Condition: Fair Referrals and Follow-Ups: None,PCP [Primary Care Provider] - - Critical Care Note This patient required my direct & personal management of CC.: No Attestation - Physician/ VIDAL Attestation Patient care was provided by Advanced Practice Provider:: No The physician spent face to face time with patient:: Yes Advanced Practice Provider documentation review:: Supervising physician onsite and consulted in the evaluation and care of this patient. The physician did have a face to face encounter with the patient.
[2019-01-11] MEDS ORDERED: M.V.I.-12 10 ML, FOLIC ACID 1 MG, MAGNESIUM SULFATE 1 GM, THIAMINE 100 MG in NS 1,000 ML IV ONE (21:49)
[2019-01-11] MEDS ORDERED: ATIVAN IV ONE (21:50)
[2019-01-11] MEDS ORDERED: NICODERM PATCH TD ONE (21:53)
[2019-01-11] MEDS ORDERED: TYLENOL PO ONE (22:51)
[2019-01-11] MEDS ORDERED: PHENOBARBITAL IV ONE (23:58)
[2019-01-12] MEDS ORDERED: ZOFRAN IV PRN (01:37)
[2019-01-12] MEDS: NS 1,000 ML IV SCH ×4 (01:52→20:44)
--- NOTE | 2019-01-12 03:21 | HISTORY AND PHYSICAL ---
CHIEF COMPLAINT: Alcohol withdrawal. HISTORY OF PRESENT ILLNESS: This is a 43-year-old male who I admitted this morning around 3:00 a.m. as well after drinking a large quantity of alcohol. His alcohol level was around 485. He was intubated. Placed in ICU. At some point today he was weaned off the ventilator and left AMA. He comes back in tonight with his having the complaint of alcohol type withdrawals. He was shaking and had a seizure apparently, however, he did not lose his bowel or bladder. He has reportedly had seizure activity in the past with withdrawal. At any rate he was given Ativan in the emergency room. He will placed on PCU for further evaluation and treatment. PAST MEDICAL HISTORY: Polysubstance abuse, suicidal ideation and tobacco use. PREVIOUS SURGICAL HISTORY: Denies. FAMILY HISTORY: Mother had bipolar disorder. SOCIAL HISTORY: Lives with . Smokes a pack to a pack and a half of cigarettes per day. Denies daily alcohol use but apparently binge drinks. Has been drinking pretty much day and night for the last few days. ALLERGIES: No known drug allergies. HOME MEDICATIONS: Denies. REVIEW OF SYSTEMS: Fourteen point review of systems conducted with the patient, and he also had complaint of headache and nausea and vomiting. Other pertinent positives listed above in the HPI. All other systems reviewed and found to be negative. PHYSICAL EXAMINATION: VITAL SIGNS: Temperature 98.6 degrees, pulse 97, respirations 19, blood pressure 118/88, oxygen saturation 99% on room air. GENERAL: 43-year-old male in the ER. He is resting comfortably. He is in no acute distress. Had some notable tremor in bilateral hands. HEENT: Head is atraumatic, normocephalic. Pupils equal, round and reactive to light. Extraocular eye movement is intact. Sclerae are anicteric. Conjunctiva is pink. Oral mucosa is moist. NECK: Supple. No JVD. No thyromegaly. Trachea is midline. No cervical lymphadenopathy. CARDIAC: S1, S2 appreciated. No murmurs, gallops or rubs. He is tachycardic. LUNGS: No rhonchi, wheezes or rales. Symmetrical rise and fall of respirations. ABDOMEN: Soft, nondistended, diffusely tender to palpation. Bowel sounds present in all 4 quadrants. Normoactive. No pulsatile mass. No organomegaly. EXTREMITIES: No clubbing, cyanosis or edema. Two-plus pedal pulses. GENITOURINARY: No bladder distention. Patient voids. Otherwise deferred. NEUROLOGICAL: Alert and oriented times 3. Somewhat lethargic related to Ativan administration but he does wake up and answered questions appropriately. Resting tremor noted in bilateral hands. DIAGNOSTIC DATA: EKG shows normal sinus rhythm. Rate in the 80s and 90s. Chest x-ray, mildly elevated right hemidiaphragm. No infiltrates, effusions or edema. LABORATORY DATA: WBC 11.65. Hemoglobin 15.9. Hematocrit 47.9. Platelet count 291. Sodium 141, potassium 4, chloride 102, carbon dioxide 25, BUN 7, creatinine 0.8, glucose 93. Toxicology screen unremarkable. Serum alcohol was negative. ASSESSMENT AND PLAN: 1. Alcohol withdrawal. 2. Alcohol use and abuse. 3. Tobacco use and abuse. 4. Questionable withdrawal related seizure. PLAN: Will give p.r.n. Ativan for withdrawal and/or seizure activity. Will continue to give thiamine. Recheck laboratory data in the a.m. His electrolytes were fixed yesterday before he left AMA. Place NicoDerm patch on patient. Further recommendations per patient's clinical course. Dictated by MICHELA Whittington for Filippo Beck MD cc: MICHELA Whittington MD
--- NOTE | 2019-01-12 05:12 | Diag Imaging Result Doc PS360 ---
EXAM: CHEST-1 VIEW HISTORY: RLL rales, recent aspiration TECHNIQUE: Single view COMPARISON: 01/11/2019 FINDINGS: The lungs are well expanded. The endotracheal tube has been removed. The heart is not enlarged. The vessels are not distended. There are no infiltrates. No effusion identified. IMPRESSION: No pneumonia. Electronically signed by Prosper Bonilla 01/12/2019 5:10 AM
[2019-01-12] MEDS: PROTONIX PO SCH ×2 (08:12→20:09)
[2019-01-12] MEDS: ATIVAN IV PRN ×5 (08:16→20:09)
[2019-01-12] MEDS ORDERED: NICODERM PATCH TD SCH (09:00)
[2019-01-12] MEDS ORDERED: THIAMINE 100 MG in NS 50 ML IV SCH (09:00)
[2019-01-12] MEDS: LIBRIUM PO SCH ×2 (12:04→17:22)
[2019-01-13] MEDS: LIBRIUM PO SCH ×2 (00:51→05:22)
[2019-01-13] MEDS: ATIVAN IV PRN ×2 (01:19→06:50)
--- NOTE | 2019-01-13 03:09 | GASTROENTEROLOGY CONSULTATION ---
DATE: 01/12/2019 REASON FOR CONSULTATION: Question hematemesis. HISTORY OF PRESENT ILLNESS: Mr. Robert Cardoso is a 43-year-old gentleman with a past medical history of alcoholism, bipolar disorder, anxiety and depression, who was recently hospitalized for acute respiratory failure requiring intubation in the setting of alcohol intoxication. The patient was extubated in the ICU and subsequently left AMA within several hours. He returned overnight after having a seizure episode at home witnessed by family. Per report the patient developed a 3 to 6 minute episode of seizure-like activity with shaking and disorientation, as well as loss of consciousness. He awoke postictally. He was in a sitting position and did not sustain any injuries. At this point he developed some episodes of nausea and vomiting and reportedly coughed up some blood. He had a similar episode post extubation after being intubated. The family reports that on his last admission prior to leaving AMA he had an NG tube placed, which had some coffee-ground output noted. His last drink of alcohol was 2 nights ago at which time he drank 2 pints and a 5th of liquor. He says that he has been drinking heavily on the weekends in the last several weekends secondary to stress and depression. He denies regular alcohol intake otherwise. [facility] after [facility] a 2-year term in October. He does smoke a pack a day and denies any other substance use. No melena, hematochezia, change in bowel habits, shortness of breath or chest pain. He does have a cough that is nonproductive. REVIEW OF SYSTEMS: As per HPI. Otherwise the patient complains of some anxiety. No abdominal pain. PAST MEDICAL HISTORY: As per HPI. PAST SURGICAL HISTORY: None. FAMILY HISTORY: Alcoholic cirrhosis in his uncle. He is not sure if there is any GI malignancies in his family history. SOCIAL HISTORY: A 1 pack per day smoker since he was 14 years old. His drinks alcohol heavily as described above. No drug use. He was recently released from [facility] in October. MEDICATIONS: None. ALLERGIES: None. PHYSICAL EXAMINATION: Vital Signs: Temperature is 98.1 degrees, heart rate of 90, respiratory rate of 19, blood pressure is 148/104, O2 saturation is 100% on room air. General: The patient is awake, alert, oriented, no acute distress. HEENT: Sclerae are anicteric. Moist mucous membranes. Extraocular motor intact. Neck: Neck is supple with no JVD or lymphadenopathy. Cardiac: Regular rate and rhythm. No murmurs, rubs or gallops. Abdomen: Soft, nontender, nondistended. Normoactive bowel sounds. No rebound or guarding. Extremities: No clubbing, cyanosis or edema. Neurologic: Nonfocal. Cranial nerves II-XII grossly intact. LABORATORY DATA: White count is 11.6, hemoglobin is 15.9, platelets of 291,000. Sodium 141, potassium 4.0, chloride of 103, bicarbonate is 25, BUN is 7, creatinine is 0.8. LFTs are within normal limits. UA showed trace blood and protein. Toxicology is positive for benzodiazepines. Alcohol level is negative. IMAGING: Head CT on 01/10/2019 was negative. Chest x-ray yesterday was normal. ASSESSMENT AND PLAN: Mr. Robert Cardoso is a 43-year-old gentleman who presents with likely alcohol withdrawal seizure. GI was consulted for question hematemesis versus hemoptysis. His hemoglobin is normal. Platelets are normal. LFTs are within normal limits. No evidence of cirrhosis on exam. I suspect that his bleeding is likely related to esophagitis versus benign Archuleta tear gastritis. He had a recent NG versus OG in place during his last hospitalization. He is currently on a PPI [*]40 mg b.i.d., IV fluids, Ativan, nicotine patch, thiamin. He appears clinically stable currently and does not appear to be in DTs. His exam is unrevealing. We will plan to keep him NPO after midnight for a diagnostic EGD tomorrow to rule out any luminal pathology. The plan was discussed with the patient and family at bedside. Thank you for this consult. Please call with any questions or concerns.
[2019-01-13] MEDS: NS 1,000 ML IV SCH (05:31)
[2019-01-13 05:47] VITALS: BP 149/96
[2019-01-13 06:26] LABS: MAGNESIUM 1.9 mg/dL (1.5-2.7); PHOSPHORUS 2.9 mg/dL (2.7-4.5)
--- NOTE | 2019-01-13 14:08 | DISCHARGE SUMMARY ---
ADMISSION DATE: 01/12/2019 DISCHARGE DATE: 01/13/2019 DISPOSITION: This is an AMA discharge for this patient. DIAGNOSES: 1. Alcohol withdrawal. 2. Alcohol use and abuse. 3. Tobacco use and abuse. 4. Questionable withdrawal related seizures. HISTORY: In brief, this was a patient who was admitted to the hospital because apparently according to he had been complaining of alcohol withdrawal, and he was feeling very nervous. Admitted to the hospital. He was very anxious. He smoked in the hospital, and also he was trying to open to open sharp container box. This morning he decided to go AMA. GI has already scheduled endoscopy for him, but he unfortunately left the hospital against medical advice. cc: Jose Chaves MD
== END 2019-01-13 08:02 | disposition left against medical advice (07) | DRG 894 ==
LOC: ED 19:24 → 2N 01-12 00:40 → SUATTDRO 01-12 00:40
PROVIDERS: ATTEND Internal Medicine